=== PATIENT | female | born 1990 | race Caucasian/White ===

== ENCOUNTER 2016-07-26 17:12 | Outpatient (CLI) | payer OTHER | END 2016-07-26 19:17 | disposition home or self-care (01) | LOC: GENOP 17:12 | DX: O47.03 False labor before 37 completed weeks of gestation, third trimester (principal); Z3A.32 32 weeks gestation of pregnancy | CPT/HCPCS: 96360; J7120 ==

== ENCOUNTER 2016-09-08 20:40 | Outpatient (CLI) | payer OTHER | END 2016-09-08 21:31 | disposition home or self-care (01) | LOC: GENOP 20:40 | PROVIDERS: Obstetrics & Gynecology | DX: O36.8130 Decreased fetal movements, third trimester, not applicable or unspecified (principal); Z3A.38 38 weeks gestation of pregnancy | CPT/HCPCS: 80307; 81001; G0463 ==

== ENCOUNTER 2016-09-16 20:26 | Inpatient (IN) | payer OTHER ==
[~2016-09-16] VITALS: Ht 157.5 cm; Wt 65.8 kg
[2016-09-16 21:39] LABS: HEMOGLOBIN 13.1 gm/dl (12.3-15.3); RED BLOOD COUNT 3.82 M/UL (4.00-5.10); WHITE BLOOD COUNT 16.5 K/UL (4.5-11.0)
[2016-09-19] MEDS ORDERED: COLACE 100MG C100 MG PO (13:22)
== END 2016-09-19 11:17 | disposition home or self-care (01) | DRG 774 ==
LOC: GENOP 20:26 → OB 21:21
PROVIDERS: Obstetrics & Gynecology; ADMIT Obstetrics & Gynecology
PROC: 10E0XZZ Delivery of Products of Conception, External Approach (ICD-10-PCS; principal; 2016-09-17)
PROC: 0KQM0ZZ Repair Perineum Muscle, Open Approach (ICD-10-PCS; 2016-09-17)
PROC: 10907ZC Drainage of Amniotic Fluid, Therapeutic from Products of Conception, Via Natural or Artificial Opening (ICD-10-PCS; 2016-09-17)
PROC: 3E0234Z Introduction of Serum, Toxoid and Vaccine into Muscle, Percutaneous Approach (ICD-10-PCS; 2016-09-18)
DX: O77.0 Labor and delivery complicated by meconium in amniotic fluid (principal); O98.413 Viral hepatitis complicating pregnancy, third trimester; O70.1 Second degree perineal laceration during delivery; Z3A.39 39 weeks gestation of pregnancy; Z37.0 Single live birth; Z23 Encounter for immunization; B19.20 Unspecified viral hepatitis C without hepatic coma; Z87.898 Personal history of other specified conditions
CPT/HCPCS: 36415; 51702; 80307; 81001; 82800; 85014; 85018; 85025; 85461; 86850; 86900; 86901; 90715; J2590; J2790; J2795; J3010; J3430; J7120

== ENCOUNTER 2016-10-12 18:14 | Emergency (ER) | payer OTHER ==
[~2016-10-12 18:14] MED LIST: COLACE 100MG C100 MG PO
[2016-10-12 19:15] LABS: HEMOGLOBIN 13.7 gm/dl (12.3-15.3); RED BLOOD COUNT 4.14 M/UL (4.00-5.10); WHITE BLOOD COUNT 7.5 K/UL (4.5-11.0)
== END 2016-10-12 22:13 | disposition home or self-care (01) ==
LOC: ER1 18:14
PROVIDERS: Radiology Radiation Oncology
DX: O72.2 Delayed and secondary postpartum hemorrhage (principal)
CPT/HCPCS: 36415; 84702; 84703; 85025; 96361; 96374; 99284; J2405

== ENCOUNTER 2020-11-01 07:14 | Emergency (ER) | payer OTHER ==
[~2020-11-01 07:14] MED LIST changes: +AMOXICILLIN500 MG PO; +BUPRENORPHINE HC8 MG SL; +CLARITIN10 M2 PO; +IBUPROFEN600 MG PO; +PENVEE K 500 M500 MG PO; +PHENERGAN 12.12.5 M1 PO; +PRENATAL VITAM1 EAC8 PO; +SUBUTEX 8 MG TAB8 MG GT
[2020-11-01] MEDS ORDERED: IBU800 MG PO (07:54)
[2020-11-01] MEDS ORDERED: CLEOCIN HCL300 MG PO (07:54)
== END 2020-11-01 08:07 | disposition home or self-care (01) ==
LOC: ER1 07:14
DX: H66.002 Acute suppurative otitis media without spontaneous rupture of ear drum, left ear (principal); F17.200 Nicotine dependence, unspecified, uncomplicated; Z88.2 Allergy status to sulfonamides; Z79.899 Other long term (current) drug therapy
CPT/HCPCS: 96372; 99282; J1885

== ENCOUNTER 2020-11-11 17:26 | Emergency (ER) | payer OTHER ==
[~2020-11-11 17:26] MED LIST changes: +CLEOCIN HCL300 MG PO; +IBU800 MG PO
[2020-11-11 19:00] LABS: HEMOGLOBIN 12.3 gm/dl (12.3-15.3); RED BLOOD COUNT 3.94 M/UL (4.00-5.10); WHITE BLOOD COUNT 6.7 K/UL (4.5-11.0)
[2020-11-11 19:10] LABS: BUN/CREATININE RATIO 13 (0-10)
[2020-11-11] MEDS ORDERED: CEPHALEXIN500 M1 PO (22:38)
[2020-11-11] MEDS ORDERED: KEPPRA500 MG PO (22:38)
[2020-11-11] MEDS ORDERED: DIFLUCAN150 MG PO (22:38)
== END 2020-11-11 23:25 | disposition left against medical advice (07) ==
LOC: ER1 17:26
PROVIDERS: Physician Assistant
DX: R41.82 Altered mental status, unspecified (principal); R56.9 Unspecified convulsions; N39.0 Urinary tract infection, site not specified; B37.9 Candidiasis, unspecified; A59.9 Trichomoniasis, unspecified; S00.212A Abrasion of left eyelid and periocular area, initial encounter; S00.211A Abrasion of right eyelid and periocular area, initial encounter; F10.10 Alcohol abuse, uncomplicated; F15.90 Other stimulant use, unspecified, uncomplicated; F17.200 Nicotine dependence, unspecified, uncomplicated; Z88.2 Allergy status to sulfonamides; Z79.899 Other long term (current) drug therapy
CPT/HCPCS: 70450; 71045; 80053; 80307; 81001; 84439; 84443; 84703; 85025; 87086; 96374; 99285; G0480; J1953

== ENCOUNTER 2020-11-23 15:51 | Emergency (ER) | payer OTHER ==
[~2020-11-23 15:51] MED LIST changes: +CEPHALEXIN500 M1 PO; +DIFLUCAN150 MG PO; +KEPPRA500 MG PO
[2020-11-23] MEDS ORDERED: [UNRECOGNIZED DRUG - OTHER] (16:20)
== END 2020-11-23 16:11 | disposition home or self-care (01) ==
LOC: ER1 15:51
DX: F30.9 Manic episode, unspecified (principal)
CPT/HCPCS: 99284